=== PATIENT | female | born 1990 | race Caucasian/White ===

== ENCOUNTER 2020-06-10 09:11 | Outpatient (REF) | payer OTHER, SELFPAY ==
[2020-06-10 09:30] LABS: COVID-19 Test Negative (Negative)
== END 2020-06-10 09:12 | disposition home or self-care (01) ==
LOC: HO.LAB 09:11
PROVIDERS: Visit Provider Internal Medicine
DX: Z20.828 Contact with and (suspected) exposure to other viral communicable diseases (principal)
CPT/HCPCS: 87635; C9803

== ENCOUNTER 2020-07-30 09:06 | Outpatient (REF) | payer OTHER, SELFPAY ==
[2020-07-30 09:45] LABS: COVID-19 Test Negative (Negative); IDNOW Serial# 55D5AD1C
== END 2020-07-30 09:07 | disposition home or self-care (01) ==
LOC: HO.EMPCOV 09:06
PROVIDERS: Visit Provider Internal Medicine
DX: Z20.828 Contact with and (suspected) exposure to other viral communicable diseases (principal)
CPT/HCPCS: 87635; C9803

== ENCOUNTER 2020-08-05 14:23 | Outpatient (REF) | payer OTHER, SELFPAY ==
[2020-08-05 14:47] LABS: COVID-19 Test Negative (Negative)
== END 2020-08-05 14:24 | disposition home or self-care (01) ==
LOC: HO.EMPCOV 14:23
PROVIDERS: Visit Provider Internal Medicine
DX: Z20.828 Contact with and (suspected) exposure to other viral communicable diseases (principal)
CPT/HCPCS: 87635; C9803